=== PATIENT | female | born 1940 | race Caucasian/White ===

== ENCOUNTER → 2018-07-28 | Outpatient (REF) ==
[~2018-07-28] MED LIST: ALEVE 220MG220 MG PO; COMPLETE SENIOR1 TA1 PO; MOBIC 7.5MG7.5 MG PO; PRAVACHOL 20MG20 MG PO; PREVACID 30MG30 M1 PO; PROBIOTIC-MAJOR PO; TIROSINT50 MC1 PO; TOPROL XL100 MG PO; TYLENOL 500MG500 MG PO
[2018-07-28 16:32] LABS: AMYLASE 86 U/L (30-110); LIPASE 87 U/L (23-300)
== END ==
LOC: ZLAB.WCH 16:13
PROVIDERS: Nurse Practitioner Family
DX: Z01.89 Encounter for other specified special examinations (principal)

== ENCOUNTER → 2021-10-13 | Outpatient (CLI) | payer MEDICARE | LOC: COL.RAD 09:29 | DX: N28.1 Cyst of kidney, acquired (principal) ==

== ENCOUNTER → 2022-07-07 | Outpatient (CLI) | payer MEDICARE | LOC: COL.RAD 14:06 | DX: N28.1 Cyst of kidney, acquired (principal); M54.50 Low back pain, unspecified; R10.11 Right upper quadrant pain ==

== ENCOUNTER 2023-01-12 15:20 | Observation (INO) | payer MEDICARE ==
[2023-01-12 16:40] LABS: HEMOGLOBIN 11.6 g/dl (12.5-16.0); MEAN CELL VOLUME 96 fl (80.0-100.0); MEAN CORPUSCULAR HEMOGLOBIN 32 pg (27-31); MEAN CORPUSCULAR HGB CONC 34 g/dl (33.0-37.0); MEAN PLATELET VOLUME 9.4 fl (7.4-10.4); PLATELET COUNT 199 K/mm3 (130-400); RED BLOOD COUNT 3.62 M/mm3 (4.10-5.30)
[2023-01-12 16:41] LABS: HEMATOCRIT 34.6 % (37.0-47.0)
--- NOTE | 2023-01-12 16:45 | NUR ---
Pt to medical floor, room 314. Pt oriented to room and call light system. A&Ox4. Hard of hearing; hearing aids on DOREEN. Telemetry on with NSR. LCTA on RA. BSx4. Pedal pulses +1,DOREEN. Ecchymosis noted on BUE. Pt states she has some dypsnea on exertion, other than that she "does not feel anything when laying down." Call light within reach.
[2023-01-12] MEDS ORDERED: PREDNISONE10 MG PO (16:49)
[2023-01-12] MEDS ORDERED: FOSAMAX 35MG35 MG PO (16:50)
[2023-01-12] MEDS ORDERED: ETHAMBUTOL HYD400 MG PO (16:52)
[2023-01-12 16:55] VITALS: BP 148/66; PULSE 73; TEMP 98.4
[2023-01-12] MEDS ORDERED: METHOTREXA2.5 MG/TAB PO (16:57)
[2023-01-12 16:58] LABS: PARTIAL THROMBOPLASTIN TIME 24.4 SECONDS (26.0-37.0)
[2023-01-12] MEDS ORDERED: NORCO 325 MG-51 TAB PO (16:58)
[2023-01-12] MEDS ORDERED: VITAMIN D 50,1.25 MG PO (16:59)
[2023-01-12] MEDS ORDERED: LOPRESSOR100 MG PO (17:00)
[2023-01-12 17:01] LABS: BILIRUBIN,TOTAL 0.4 mg/dL (0.2-1.2); CALCIUM 9.4 mg/dL (8.4-10.2); CREATININE, serum 1.17 mg/dL (0.57-1.11); MAGNESIUM 2.1 mg/dL (1.6-2.6); POTASSIUM 4.1 mmol/L (3.5-4.5); TOTAL PROTEIN 7.1 gm/dL (6.2-8.1)
[2023-01-12] MEDS ORDERED: FOLIC ACID 11 MG/TA1 PO (17:01)
[2023-01-12 17:04] LABS: BAND 5 % (0-10); LYMPHOCYTE 20 % (20.0-51.0); METAMYELOCYTE 2 % (0-0); NEUTROPHILS 63 % (42.0-75.2)
[2023-01-12 17:05] LABS: ANISOCYTOSIS 1+
[2023-01-12 17:06] LABS: PLATELET ESTIMATE NORMAL (NORMAL)
[2023-01-12 19:57] VITALS: BP 148/66; PULSE 73
[2023-01-12 23:48] VITALS: BP 119/55; PULSE 62; TEMP 97.7
--- NOTE | 2023-01-13 02:15 | NUR ---
HepXa 1.24, stopped for 2 hours @ 0215 per protocol, PTT and HepXa ordered for 0415
[2023-01-13 03:22] VITALS: BP 149/66; PULSE 57; TEMP 98.1
[2023-01-13 05:03] LABS: PARTIAL THROMBOPLASTIN TIME 44.4 SECONDS (26.0-37.0)
--- NOTE | 2023-01-13 05:15 | NUR ---
HepXa drawn after heparin off x2hrs is 0.5, rate decreased to 6.5 cc/hr per protocol, recheck @ 8652
[2023-01-13] MEDS ORDERED: PROTONIX 40MG T40 MG PO (07:23)
[2023-01-13] MEDS ORDERED: ELIQUIS 5MG PO (07:24)
[2023-01-13 08:17] VITALS: BP 140/55; PULSE 67; TEMP 98.1
[2023-01-13 11:28] VITALS: BP 130/64; PULSE 66; TEMP 98.1
== END 2023-01-13 12:51 | disposition home or self-care (01) ==
LOC: COL.ER 15:20 → EDSTATUS 15:42 → MEDICAL 15:44
PROVIDERS: Hospitalist; ADMIT Internal Medicine
DX: I26.99 Other pulmonary embolism without acute cor pulmonale (principal); I82.402 Acute embolism and thrombosis of unspecified deep veins of left lower extremity; A31.2 Disseminated mycobacterium avium-intracellulare complex (DMAC); B37.81 Candidal esophagitis; M06.9 Rheumatoid arthritis, unspecified; E78.5 Hyperlipidemia, unspecified; E03.9 Hypothyroidism, unspecified; K21.9 Gastro-esophageal reflux disease without esophagitis; M19.90 Unspecified osteoarthritis, unspecified site; I07.1 Rheumatic tricuspid insufficiency; Z79.899 Other long term (current) drug therapy; Z79.890 Hormone replacement therapy; Z79.52 Long term (current) use of systemic steroids
CPT/HCPCS: G0378; J1644; J7512

== ENCOUNTER 2023-07-27 11:44 | Observation (INO) | payer MEDICARE ==
[2023-07-27] VITALS (13 sets, daily range): BP systolic 88–127; BP diastolic 30–77; PULSE 57–90; TEMP 98.1–98.4
[~2023-07-27] VITALS: Ht 162.6 cm; Wt 57.7 kg
[~2023-07-27 11:44] MED LIST changes: +ELIQUIS 5MG PO; +ETHAMBUTOL HYD400 MG PO; +FOLIC ACID 11 MG/TA1 PO; +FOSAMAX 35MG35 MG PO; +LOPRESSOR100 MG PO; +METHOTREXA2.5 MG/TAB PO; +NORCO 325 MG-51 TAB PO; +PREDNISONE10 MG PO; +PROTONIX 40MG T40 MG PO; +SYNTHROID0.05 MG/TA PO; -TIROSINT50 MC1 PO; -TOPROL XL100 MG PO; +VITAMIN D 50,1.25 MG PO
[2023-07-27 12:15] LABS: BASO % 0.2 % (0.0-2.0); GRAN # 7.8 K/mm3 (1.4-6.5); GRAN % 80.9 % (42.2-75.2); HEMOGLOBIN 11.1 g/dl (12.5-16.0); LYMPH # 1.3 K/mm3 (1.2-3.4); LYMPH % 13.3 % (20.0-51.0); MEAN CELL VOLUME 98 fl (80.0-100.0); MEAN CORPUSCULAR HEMOGLOBIN 31 pg (27-31); MEAN CORPUSCULAR HGB CONC 31 g/dl (33.0-37.0); MEAN PLATELET VOLUME 9.6 fl (7.4-10.4); MONO # 0.5 K/mm3 (0.1-0.6); MONO % 4.8 % (1.7-9.3); PLATELET COUNT 297 K/mm3 (130-400); RED BLOOD COUNT 3.63 M/mm3 (4.10-5.30); REDCELL DISTRIBUTION WIDTH-CV 18.5 % (11.5-14.5)
[2023-07-27 12:16] LABS: HEMATOCRIT 35.7 % (37.0-47.0)
[2023-07-27 12:21] LABS: PROTHROMBIN TIME 11.1 SECONDS (9.7-12.8)
[2023-07-27 12:24] LABS: PARTIAL THROMBOPLASTIN TIME 25.1 SECONDS (26.0-37.0)
[2023-07-27 12:39] LABS: ALBUMIN 4.3 gm/dL (3.4-4.8); BILIRUBIN,TOTAL 0.5 mg/dL (0.2-1.2); CALCIUM 9.5 mg/dL (8.4-10.2); CREATININE, serum 1.05 mg/dL (0.57-1.11); TOTAL PROTEIN 7.1 gm/dL (6.2-8.1)
[2023-07-27 12:59] LABS: TROPONIN-I 0.017 ng/mL (0.00-0.033); TSH w REFLEX 2.965 uIU/mL (0.350-4.940)
[2023-07-27] MEDS ORDERED: FLONASE NASAL S16 GM NS (12:59)
[2023-07-27] MEDS ORDERED: ELIQUIS 2.5 PO (16:21)
[2023-07-27] MEDS ORDERED: CORDARONE200 MG/TAB PO (16:24)
--- NOTE | 2023-07-27 19:25 | NUR ---
Clarified with SHERIN Harris. Since therapy has not seen patient, ok for patient to stay tonight. Notified that home medications were not ordered yet, awaiting further orders.
--- NOTE | 2023-07-27 21:50 | NUR ---
Patient assessed around 2014. Alert and oriented, and able to make needs known. Denies having pain and discomfort. Peripheral INT to right wrist. Right AC taken out due to leaking. Remains in normal sinus rhythm on telemetry. Voices no questions, needs, or concerns at this time. In bed with call light within reach.
[2023-07-28 00:08] VITALS: BP_SYST 107
[2023-07-28 02:53] VITALS: BP 125/54; PULSE 56; TEMP 98
[2023-07-28 03:19] VITALS: BP_SYST 125
--- NOTE | 2023-07-28 05:58 | NUR ---
Patient has denied pain and discomfort this shift. Voices no questions, needs, or concerns at this time. In bed with call light within reach. Remains in normal sinus on telemetry.
[2023-07-28 07:33] VITALS: BP 153/72; PULSE 75; TEMP 98.4
[2023-07-28 09:00] VITALS: BP_SYST 153
--- NOTE | 2023-07-28 09:21 | NUR ---
Accounting Office Manager met with Patient at bedside to conduct Care Managment ASsessment and discuss discharge planning. Patient lives in [place], [place] with her significant other of 30 years and his son. Patient states that her daughter is her HCDPOA. Patient is established with Dr. Rob in [place] for PCP and covered by [facility] [employer] for insurance. PAtient requests discharge medications be sent to [facility] in [place], [place]. Patient denies the use of DME and endorses independent ADL/IADLs prior to admission. Physician assesses Patient to be ready for discharge. PAtient will discharge home today.
--- NOTE | 2023-07-28 10:15 | NUR ---
WENT OVER DISCHARGE WITH THE PATIENT. SHE UDERSTOOD HER DISCHARGE INSTRUCTIONS. NURSING WALKED PATIENT TO EXIT.
== END 2023-07-28 10:15 | disposition home or self-care (01) ==
LOC: COL.ER 11:44 → MEDICAL 13:22
PROVIDERS: Family Medicine; ADMIT Internal Medicine
DX: I48.91 Unspecified atrial fibrillation (principal); D64.9 Anemia, unspecified; M19.90 Unspecified osteoarthritis, unspecified site; R00.0 Tachycardia, unspecified; E89.0 Postprocedural hypothyroidism; H91.90 Unspecified hearing loss, unspecified ear; M81.0 Age-related osteoporosis without current pathological fracture; K21.9 Gastro-esophageal reflux disease without esophagitis; F17.210 Nicotine dependence, cigarettes, uncomplicated; Z86.711 Personal history of pulmonary embolism; Z79.899 Other long term (current) drug therapy; Z79.891 Long term (current) use of opiate analgesic; Z79.890 Hormone replacement therapy
CPT/HCPCS: G0378; J1644; J2704; J7512

== ENCOUNTER 2024-02-11 13:40 | Emergency (ER) | payer MEDICARE ==
[~2024-02-11] VITALS: Ht 170.2 cm; Wt 49.1 kg
[~2024-02-11 13:40] MED LIST changes: +ALDACTONE 25MG25 M1 PO; +AZULFIDINE ENT500 MG PO; +CIPRO 250MG TA250 MG PO; +CORDARONE200 MG/TAB PO; +COUMADIN 2MG2 MG/TAB PO; +ELIQUIS 2.5 PO; +EUTHYROX50 MCG PO; +FERROUSAL325 MG PO; +FLONASE NASAL S16 GM NS; +LASIX 20MG TABL20 MG PO; +LIDOCAINE HCL100 M1 MM; +PACERONE200 MG PO; +PACERONE400 MG PO; +PREDNISONE20 MG PO
[2024-02-11 13:45] VITALS: TEMP 97.6
[2024-02-11 14:43] LABS: ARTERIAL BLD GAS O2 SATURATION 95.2 % (92-100); ARTERIAL BLD GAS TCO2 CT 24.2; ARTERIAL BLOOD GAS BASE EXCESS 3.2 (-2-2); ARTERIAL BLOOD GAS HCO3 23.5 meq/L (22-26); ARTERIAL BLOOD GAS PO2 66.7 mmHg (80-100)
[2024-02-11 14:44] LABS: ARTERIAL BLOOD GAS PCO2 23.1 mmHg (35-45); ARTERIAL BLOOD GAS pH 7.63 (7.35-7.45)
[2024-02-11 15:16] LABS: BASO # 0.1 K/mm3 (0.0-0.2); BASO % 1.1 % (0.0-2.0); EOS # 0.2 K/mm3 (0.0-0.7); EOS % 2.1 % (0.0-4.0); GRAN # 5.8 K/mm3 (1.4-6.5); GRAN % 66.4 % (42.2-75.2); HEMOGLOBIN 10.1 g/dl (12.5-16.0); LYMPH # 1.4 K/mm3 (1.2-3.4); LYMPH % 15.4 % (20.0-51.0); MEAN CELL VOLUME 87 fl (80.0-100.0); MEAN CORPUSCULAR HEMOGLOBIN 27 pg (27-31); MEAN CORPUSCULAR HGB CONC 31 g/dl (33.0-37.0); MONO # 1.2 K/mm3 (0.1-0.6); MONO % 13.6 % (1.7-9.3); PLATELET COUNT 241 K/mm3 (130-400); RED BLOOD COUNT 3.74 M/mm3 (4.10-5.30); REDCELL DISTRIBUTION WIDTH-CV 17.8 % (11.5-14.5)
[2024-02-11 15:27] LABS: HEMATOCRIT 32.4 % (37.0-47.0)
[2024-02-11 15:30] LABS: INR 1.6 (0.8-3.0); PROTHROMBIN TIME 17.5 SECONDS (9.7-12.8)
[2024-02-11 15:39] LABS: COLLECTION METHOD CATHETER
[2024-02-11 15:40] LABS: ALBUMIN 3.4 gm/dL (3.4-4.8); BILIRUBIN,TOTAL 0.3 mg/dL (0.2-1.2); CALCIUM 9.7 mg/dL (8.4-10.2); CREATININE, serum 2.05 mg/dL (0.57-1.11); POTASSIUM 3.5 mmol/L (3.5-4.5); TOTAL PROTEIN 7.4 gm/dL (6.2-8.1)
[2024-02-11 15:46] LABS: TROPONIN-I 0.017 ng/mL (0.00-0.033)
[2024-02-11 15:58] LABS: PH 5.5 (5.0-8.5); URINE APPEARANCE CLOUDY (CLEAR/HAZY); URINE BLOOD TRACE (NEGATIVE); URINE COLOR YELLOW (YELLOW); URINE GLUCOSE NEGATIVE (NEGATIVE); URINE KETONE NEGATIVE (NEGATIVE); URINE NITRATE NEGATIVE (NEGATIVE); URINE PROTEIN(semi-quant) NEGATIVE (NEGATIVE); URINE UROBILINOGEN 0.2 E.U/dL (0.2-1.0)
[2024-02-11] MEDS ORDERED: CEPHALEXIN500 M1 PO (16:23)
[2024-02-11] MEDS ORDERED: cefTRIAXone 1 G in Water For Injection,Sterile 10 ML IV ONE (16:30)
[2024-02-11 16:46] VITALS: BP 130/78; PULSE 71
== END 2024-02-11 16:46 | disposition home or self-care (01) ==
LOC: COL.ER 13:40
PROVIDERS: Nurse Practitioner
DX: N39.0 Urinary tract infection, site not specified (principal); R06.02 Shortness of breath; Z79.899 Other long term (current) drug therapy; Z99.81 Dependence on supplemental oxygen
CPT/HCPCS: J0696

== ENCOUNTER 2024-02-15 15:44 | Inpatient (IN) | payer MEDICARE ==
[~2024-02-15] VITALS: Ht 165.1 cm; Wt 47.5 kg
[~2024-02-15 15:44] MED LIST changes: +CEPHALEXIN500 M1 PO
[2024-02-15] MEDS ORDERED: Albuterol 0.083% Neb Soln 2.5 MG/3 ML UD IH ONE (16:30)
[2024-02-15] MEDS ORDERED: methylPREDNISolone Sod Succ 125 MG/2 ML VIAL IV ONE (16:30)
[2024-02-15] MEDS ORDERED: Ipratropium 0.02% Neb Soln 0.5 MG/2.5 ML UD IH ONE (16:30)
[2024-02-15] MEDS ORDERED: NS 500 ML IV ONE (16:30)
[2024-02-15 16:32] LABS: BASO # 0.1 K/mm3 (0.0-0.2); BASO % 0.9 % (0.0-2.0); EOS % 0.2 % (0.0-4.0); GRAN # 7.2 K/mm3 (1.4-6.5); GRAN % 70.7 % (42.2-75.2); LYMPH # 1.4 K/mm3 (1.2-3.4); MEAN CELL VOLUME 86 fl (80.0-100.0); MEAN CORPUSCULAR HGB CONC 30 g/dl (33.0-37.0); MONO # 1.4 K/mm3 (0.1-0.6); MONO % 13.3 % (1.7-9.3); PLATELET COUNT 207 K/mm3 (130-400); RED BLOOD COUNT 3.61 M/mm3 (4.10-5.30); REDCELL DISTRIBUTION WIDTH-CV 17.8 % (11.5-14.5)
[2024-02-15 16:39] LABS: HEMATOCRIT 30.9 % (37.0-47.0); HEMOGLOBIN 9.4 g/dl (12.5-16.0); MEAN CORPUSCULAR HEMOGLOBIN 26 pg (27-31)
[2024-02-15 16:46] LABS: INR 1.3 (0.8-3.0); PROTHROMBIN TIME 14.2 SECONDS (9.7-12.8)
[2024-02-15 16:49] LABS: PARTIAL THROMBOPLASTIN TIME 26.7 SECONDS (26.0-37.0)
[2024-02-15 16:55] LABS: ALANINE AMINOTRANSFERASE 13 U/L (0-55); ALBUMIN 3.1 gm/dL (3.4-4.8); ALKALINE PHOSPHATASE 64 U/L (40-150); ANION GAP 17 mmol/L (7-16); AST,SGOT 20 U/L (5-34); BILIRUBIN,TOTAL 0.6 mg/dL (0.2-1.2); BLOOD UREA NITROGEN 22 mg/dL (10-20); CALCIUM 9.8 mg/dL (8.4-10.2); CHLORIDE 97 mmol/L (98-107); CREATININE, serum 1.45 mg/dL (0.57-1.11); GLUCOSE 77 mg/dL (70-99); POTASSIUM 3.7 mmol/L (3.5-4.5); SODIUM 133 mmol/L (136-145); TOTAL PROTEIN 6.6 gm/dL (6.2-8.1)
[2024-02-15 16:57] LABS: ALCOHOL(ethanol),MEDICAL < 10 mg/dL (0-10)
[2024-02-15 17:09] LABS: TROPONIN-I 0.041 ng/mL (0.00-0.033)
[2024-02-15 18:11] LABS: COLLECTION METHOD CATHETER
[2024-02-15 18:20] LABS: PH 5.5 (5.0-8.5); URINE APPEARANCE CLEAR (CLEAR/HAZY); URINE BLOOD TRACE (NEGATIVE); URINE COLOR Dark Yellow (YELLOW); URINE GLUCOSE NEGATIVE (NEGATIVE); URINE KETONE TRACE (NEGATIVE); URINE NITRATE NEGATIVE (NEGATIVE); URINE PROTEIN(semi-quant) 1+ (NEGATIVE); URINE UROBILINOGEN 0.2 E.U/dL (0.2-1.0)
[2024-02-15] MEDS ORDERED: LORazepam 2 MG/ML 1 ML VIAL IV ONE (18:30)
[2024-02-15 20:43] LABS: TRICYCLIC ANTIDEPRESS URINE NEGATIVE (NEGATIVE)
[2024-02-15 21:44] VITALS: BP 129/56; PULSE 87; TEMP 97.6
[2024-02-15] MEDS ORDERED: Acetaminophen 500 MG TAB PO PRN (21:45)
[2024-02-15] MEDS ORDERED: Polyethylene Glycol 3350 17 GM PDS PO PRN (21:45)
[2024-02-15] MEDS ORDERED: Ondansetron 4 MG/2 ML VIAL IV PRN (21:45)
[2024-02-15] MEDS ORDERED: NS Flush 25 ML IV Bag IV PRN (22:00)
[2024-02-15 22:56] VITALS: BP 117/61; PULSE 67; TEMP 97.4
[2024-02-16] VITALS (12 sets, daily range): BP systolic 99–122; BP diastolic 48–67; PULSE 61–77; TEMP 97.6–98.1
[2024-02-16] MEDS ORDERED: NS 500 ML IV ONE (04:30)
--- NOTE | 2024-02-16 05:05 | NUR ---
PT ARRIVED TO THE MEDICAL FLOOR AROUND 2135HRS TO ROOM 312. PT A&O X 2; VSS; O2 2L VIA NC. PT DENIED PAIN OR DISCOMFORT. PT UNABLE TO ANSWER MANY QUESTIONS DUE TO HER AMS. ADMISSION ASSESSMENT COMPLETE. UNABLE TO COMPLETE MED REC DUE TO PT'S AMS. WILL CONTINUE TO CHECK ON PT OFTEN. FALL PRECAUTIONS IN PLACE. BED ALARM ON. CALL LIGHT WITHIN REACH.
[2024-02-16 06:35] LABS: BASO % 0.2 % (0.0-2.0); GRAN # 4.4 K/mm3 (1.4-6.5); GRAN % 86.7 % (42.2-75.2); LYMPH # 0.5 K/mm3 (1.2-3.4); LYMPH % 10.1 % (20.0-51.0); MEAN CELL VOLUME 84 fl (80.0-100.0); MEAN CORPUSCULAR HGB CONC 32 g/dl (33.0-37.0); MEAN PLATELET VOLUME 9.9 fl (7.4-10.4); MONO # 0.1 K/mm3 (0.1-0.6); PLATELET COUNT 193 K/mm3 (130-400); RED BLOOD COUNT 3.17 M/mm3 (4.10-5.30); REDCELL DISTRIBUTION WIDTH-CV 17.6 % (11.5-14.5)
[2024-02-16 06:37] LABS: HEMATOCRIT 26.5 % (37.0-47.0); HEMOGLOBIN 8.4 g/dl (12.5-16.0); MEAN CORPUSCULAR HEMOGLOBIN 26 pg (27-31)
[2024-02-16 06:49] LABS: CALCIUM 9.2 mg/dL (8.4-10.2); CREATININE, serum 1.55 mg/dL (0.57-1.11); POTASSIUM 3.5 mmol/L (3.5-4.5)
--- NOTE | 2024-02-16 08:00 | NUR ---
Patient is resting in bed, at bedside, alert and partially oriented, telemetry in place NSR. Assessment completed, No further needs at this time. Student nurse at bedside. Call light within reach.
[2024-02-16] MEDS ORDERED: Tiotropium 18 MCG **** subs to Tiotropium 5 mcg IH SCH (10:51)
[2024-02-16] MEDS ORDERED: Tiotropium 2.5 MCG Respimat MDI IH SCH (10:54)
[2024-02-16] MEDS ORDERED: LR 1,000 ML IV SCH (11:00)
[2024-02-16] MEDS ORDERED: CEPHALEXIN500 M1 PO (11:12)
--- NOTE | 2024-02-16 13:50 | NUR ---
Pt is distended in lower quadrants. Pt said "I don't feel the need to void", has voided a sm amt after attempting.
[2024-02-16] MEDS ORDERED: Levalbuterol Neb Soln 1.25 MG/3 ML UD IH SCH (14:00)
--- NOTE | 2024-02-16 15:07 | NUR ---
Social work student Sofiya faxed Home Health updates to [facility]. Discharge plan: Home with HH
--- NOTE | 2024-02-16 15:46 | NUR ---
Printing Roller Handler met with patient to discuss discharge planning. Patient is tearful and when SW sat down to talk with patient, she stated "they are sending me to the rest home". Patient advised this was told to her by the special officer. Patient was recently hospitalized at this facility 01/17/24-01/19/24 and discharged home with home oxygen from [facility] and Home Health services from [facility]. Patient lives in [place] and sees Dr. Rob for primary care. Patient confirmed she is still getting services from [facility] and wants to continue with them. Patient lives with her life partner, Niko (ph#[phone]). Patient advised her DPOA-HC is her daughter, Thelma (ph#[phone]). Patient would like to return home with continued HH services once ready for discharge and does not want to go to a rest home. SW contacted both Niko and Thelma to provide update and review discharge plan. Discharge Plan: Home with [facility]
--- NOTE | 2024-02-16 16:11 | NUR ---
Pt voided twice, 75 mL & 100 mL. Dark yellow, clear. Still isn't feeling the need to void but is reminding herself to attempt to void.
--- NOTE | 2024-02-16 19:00 | NUR ---
Patient is resting in bed, continues getting fluids per orders, all needs met, report will be given to night RN.
--- NOTE | 2024-02-16 19:25 | NUR ---
PATIENT SITTING UP IN BED WITH TV ON WITH NO FAMILY PRESENT WITH NO ACUTE DISTRESS NOTED. PATIENT ON ROOM AIR. LR INFUSING INTO LEFT AC WITH NO COMPLICATION NOTED. PATIENT REQUESTED WATER. ICE AND WATER GIVEN. PATIENT DENEIS ANY OTHER NEEDS. PATIENT CARE ASSUMED FROM ILEANA. BED IN LOW POSITION WITH WHEELS LOCKED WITH RAILS UP X2 AND CALL LIGHT WITHIN REACH. BED ALARM ON.
--- NOTE | 2024-02-16 20:20 | NUR ---
PATIENT RESTING IN BED WITH TV ON WITH NO ACUTE DISTRESS NOTED WITH NO FAMILY PRESENT. PATIETN ON ROOM AIR. LR INFUSING INTO LEFT AC WITH NO COMPLICATIONS NOTED. TELEMETRY INTACT. ASSESSMENT COMPLETED AT THIS TIME. PATIENT TOELRATED WELL. PATIENT HELPED TO TURN TO RIGHT SIDE WITH PILLOW SUPPORT IN PLACE. PATIENT DENIES ANY OTHER NEEDS. BED IN LOW POSITION WITH WHEELS LOCKED WITH RAILS UP X3 AND CALL LIGHT WITHIN REACH.
--- NOTE | 2024-02-16 21:24 | NUR ---
PATIENT RESTING ON BACK WITH TV OFF WITH NO ACUTE DISTRESS NOTED. PATIENT ON ROOM AIR. PATIENT EASILY AROUSED. MEDICATION ADMINISTRATION COMPLETED AT THIS TIME. PATIENT TOLERATED WELL. PATIENT REQUESTED ICE AND WATER. BOTH GIVEN. ALL NEEDS MET. BED IN LOW POSITION WITH WHEELS LOCKED WITH RAILS UP X3 AND CALL LIGHT WITHIN REACH.
[2024-02-17] VITALS (9 sets, daily range): BP systolic 92–129; BP diastolic 47–69; PULSE 65–76; TEMP 97.4–98
[2024-02-17 06:52] LABS: MEAN CELL VOLUME 85 fl (80.0-100.0); MEAN CORPUSCULAR HGB CONC 31 g/dl (33.0-37.0); MEAN PLATELET VOLUME 9.9 fl (7.4-10.4); PLATELET COUNT 194 K/mm3 (130-400); RED BLOOD COUNT 3.11 M/mm3 (4.10-5.30); REDCELL DISTRIBUTION WIDTH-CV 17.8 % (11.5-14.5)
[2024-02-17 06:53] LABS: HEMATOCRIT 26.4 % (37.0-47.0); HEMOGLOBIN 8.2 g/dl (12.5-16.0); MEAN CORPUSCULAR HEMOGLOBIN 26 pg (27-31)
[2024-02-17 07:09] LABS: CALCIUM 8.1 mg/dL (8.4-10.2); CREATININE, serum 1.47 mg/dL (0.57-1.11); POTASSIUM 3.7 mmol/L (3.5-4.5)
--- NOTE | 2024-02-17 08:20 | NUR ---
Patient was sitting in bed comfortably when this student nurse entered room. This student nurse performed assessment and obtained vitals on patient. Patient expressing concerns of pain 5/10 and the need for her home medications, specifically her home pain medications. Primary nurse notified of patient concerns. No other concerns from patient at this time.
[2024-02-17 08:28] LABS: ANISOCYTOSIS 1+; BAND 9 % (0-10); LYMPHOCYTE 2 % (20.0-51.0); NEUTROPHILS 87 % (42.0-75.2); PLATELET ESTIMATE NORMAL (NORMAL)
[2024-02-17 08:29] LABS: HYPOCHROMIA 2+
[2024-02-17] MEDS ORDERED: NS 1,000 ML IV SCH (08:45)
[2024-02-17] MEDS ORDERED: sulfaSALAzine 500 MG TAB PO SCH (09:00)
--- NOTE | 2024-02-17 09:21 | NUR ---
Called Dr. Rob's office to request most recent medication list- awaiting for list to be faxed.
[2024-02-17] MEDS ORDERED: Amiodarone 200 MG TAB PO SCH (09:58)
[2024-02-17 10:21] LABS: INR 1.1 (0.8-3.0); PROTHROMBIN TIME 12.3 SECONDS (9.7-12.8)
--- NOTE | 2024-02-17 10:35 | NUR ---
Initial visit; Patient smiled and stated she was happy to see Marine Fuel Dock Attendant and also mentioned that she feels better. Marine Fuel Dock Attendant was glad to hear Carolina say she is feeling good today and prays that each day gets better. Marine Fuel Dock Attendant asked if she had any needs and she stated she didn't. Marine Fuel Dock Attendant offered God's blessings.
--- NOTE | 2024-02-17 10:35 | NUR ---
Assessment completed. Pt sitting up in chair. Tylenol administered for c/o pain 5/10. Pt reports acceptable pain level 5/10 but requests Tylenol "to stay ahead of it." Patient normally takes hydrocodone for pain control but that was held due to patient AMS upon admission. Dr. Ramirez's office faxed updated med list- will update med rec. On RA. Dyspnea noted with minimal exertion. Assisted patient with bathing and oral cares- tolerated fair. INR resulted. Student nurse to administer Coumadin dose for this am.
[2024-02-17] MEDS ORDERED: TYLENOL 500MG500 MG PO (11:23)
[2024-02-17] MEDS ORDERED: PROAIR DIGIHAL90 MCG IH (11:27)
[2024-02-17] MEDS ORDERED: IPRATROPIUM BROM3 M1 IH (11:28)
[2024-02-17] MEDS ORDERED: LASIX 80MG TABL80 MG PO (11:32)
[2024-02-17] MEDS ORDERED: LIDOCAINE HCL100 M1 MM (11:42)
--- NOTE | 2024-02-17 12:19 | NUR ---
Patient reports no bowel movement x1 week which is "normal" for her. Miralax administered for constipation. Reports relief from Tyleonl.
--- NOTE | 2024-02-17 14:01 | NUR ---
Crab Picker contacted [facility] and they did not receive yesterday's updates. NAVA StudentAlice resent them. NAVA met with patient to check and and review discharge plan. Patient still wants to return home with [facility]. Discharge Plan: Home with HH
--- NOTE | 2024-02-17 16:15 | NUR ---
Pt currently a DNR. Dx Pulmonary Fibrosis. During rounding this AM Dr. Rucker reviewed pt's status. Pt stated, "I have been planning all along for this. I can make my way. I wear my O2 when I need it." I returned later this afternoon and spoke with Carolina. Carolina voiced concerns of signing up for SAMUEL especially concerning her significant other- Niko- and his living situation if she filed for SAMUEL. I encouraged her to call [facility] and gave her the phone number to review her personal situation with them. She also spoke of having "a therapy dog- her dog- who watches over her at home". "Wherever I go he needs to be able to see me." I also spoke with Carolina that I was concerned she had very little lung function and needed to make the most of wearing her O2 consistently at home. We talked about any changes in the home so she is able to stay as long as possible and be functional. Rashida VICK has been assisting pt with discharge planning. Pt found it difficult to accept that she may need care at SNF etc but stated this stemmed from concern for Niko.
--- NOTE | 2024-02-17 18:26 | NUR ---
Pt currently sitting up in bed eating supper. Reports pain to back 5/10 and requests Tylenol at bedtime. NS infusing as ordered to LAC without s/s complications. Still on RA with SpO2 97% at rest. Wears oxygen continuously at home.
--- NOTE | 2024-02-17 18:30 | NUR ---
PATIENT SITTING UP IN BED EATING A SALAD WITH TV ON WITH NO FAMILY PRESENT WITH NO ACUTE DISTRESS NOTED. PATIENT ON ROOM AIR. NS INFUSING INTO LEFT AC WITH NO COMPLICATIONS NOTED. TELEMETRY INTACT. PATIENT DENIES ANY NEEDS AT THIS TIME. PATIENT CARE ASSUMED FROM VALERIA AT THIS TIME. BED IN LOW POSITION WITH WHEELS LOCKED WITH RIALS UP X2 AND CALL LIGHT WITHIN REACH. BED ALARM ON.
--- NOTE | 2024-02-17 20:28 | NUR ---
DR. SOLO IN TO SEE PATIENT AT THIS TIME.
--- NOTE | 2024-02-17 20:33 | NUR ---
PATIENT RESTING IN BED WATCHING TV WITH NO FAMILY PRESENT WITH NO ACUTE DISTRESS NOTED. PATIENT ON ROOM AIR. NS INFUSING INTO LEFT AC WITH NO COMPLICATIONS NOTED. ASSESSMENT AND MEDICATION ADMINISTRATION COMPLETED AT THIS TIME. PATIENT TOLERATED WELL. PATIENT DENIES ANY NEEDS AT THIS TIME. BED IN LOW POSITION WITH WHEELS LOCKED WITH RAILS UP X3 AND CALL LIGHT WITHIN REACH. BED ALARM ON.
[2024-02-17] MEDS ORDERED: dexAMETHasone 4 MG/ML VIAL IV SCH (21:00)
[2024-02-18] VITALS (8 sets, daily range): BP systolic 102–130; BP diastolic 55–66; PULSE 60–75; TEMP 97.8–98.1
[2024-02-18 06:45] LABS: MEAN CELL VOLUME 85 fl (80.0-100.0); MEAN CORPUSCULAR HGB CONC 31 g/dl (33.0-37.0); PLATELET COUNT 195 K/mm3 (130-400); RED BLOOD COUNT 2.86 M/mm3 (4.10-5.30); REDCELL DISTRIBUTION WIDTH-CV 17.7 % (11.5-14.5)
[2024-02-18 06:47] LABS: HEMATOCRIT 24.4 % (37.0-47.0); HEMOGLOBIN 7.5 g/dl (12.5-16.0); MEAN CORPUSCULAR HEMOGLOBIN 26 pg (27-31)
[2024-02-18 06:59] LABS: CALCIUM 7.7 mg/dL (8.4-10.2); CREATININE, serum 1.14 mg/dL (0.57-1.11)
[2024-02-18 07:15] LABS: INR 1.3 (0.8-3.0); PROTHROMBIN TIME 14.2 SECONDS (9.7-12.8)
[2024-02-18 07:20] LABS: LYMPHOCYTE 2 % (20.0-51.0); NEUTROPHILS 95 % (42.0-75.2)
[2024-02-18 07:21] LABS: ANISOCYTOSIS 1+; HYPOCHROMIA 3+; OVALOCYTES 1+; PLATELET ESTIMATE NORMAL (NORMAL); SCHISTOCYTES 1+; TEAR DROP CELLS 1+
--- NOTE | 2024-02-18 07:55 | NUR ---
Pt awake in bed, A&O x4. Shift assessment completed. VSS. O2 in place at 2L NC with no irritation to bilateral nares. Telemetry in place. Scattered bruising noted to STANE. Pt has no complaints at this time. Shower offered to pt and pt refused kindly. 100% of breakfast ate this morning. INT to Lt AC patent with no swelling, redness, or draiange. Call light within reach and fall precautions in place.
--- NOTE | 2024-02-18 11:35 | NUR ---
PATIENT IS EMOTIONAL IN ROOM AFTER HAVING DISCUSSION WITH SOCIAL WORK AND CASE MANAGEMENT. SPOUSE AT BEDSIDE. MORNING MEDICATIONS ADMINISTERED BY UGO, GIFT SHOP CLERK. PATIENT DENIES ANY PAIN AT THIS TIME. UPDATED ON PLAN OF CARE. CURRENTLY ON BASELINE O2 OF 2L VIA NC. CALL LIGHT WITHIN REACH, BED ALARMS WITHIN PLACE, WILL CONTINUE TO MONITOR.
[2024-02-18 13:01] LABS: HEMATOCRIT 25.5 % (37.0-47.0); HEMOGLOBIN 7.8 g/dl (12.5-16.0)
[2024-02-18] MEDS ORDERED: RT SPIRIVA18 MCG IH (13:15)
[2024-02-18] MEDS ORDERED: LASIX 20MG TABL20 MG PO (13:18)
[2024-02-18] MEDS ORDERED: PACERONE100 MG PO (13:18)
[2024-02-18] MEDS ORDERED: AZULFIDINE500 MG/TAB PO (13:19)
--- NOTE | 2024-02-18 13:21 | NUR ---
During rounding Dr. Rucker, myself, significant other- Niko, Carolina and NAVA Field Y reviewed pt's status. The discussion of SAMUEL application was discussed. Per Niko- "I will be taking care of Carolina at home. I will take care of her until I can't take care of her. If we do Hospice I will do it at home until I can't and then we will take her to Hospice. We are not going to sign up for SAMUEL and have them take everything." Encouraged pt/Niko to contact [facility] to validate concerns about SAMUEL application. Pt stated, "This has been coming for I long time. I have told you this is how it would be. I know I'm weaker. Dr. Peralta did tell me he couldn't do anything more for me." Possible bleeding today for pt. HGB on admit 9.4, currently 7.8. Occult pending. Pt stated, "If I go to Hospice I'm giving up." Pt was crying off and on during discussion. She was shaking her head yes when it was discussed that she is very weak and finding it hard to do ADL's. When the topic of Hospice came up in the discussion she also shook her head yes/crying in agreement that her time is short and thoughts of how to manage are necessary. Rashida reviewed options of increased nursing checks through Home Health. Per Niko he would use them if he needed to. I stated to pt that she is currently Acutely/Chronically ill and this is now her new normal.
[2024-02-18] MEDS ORDERED: DECADRON 1MG TAB1 MG PO (13:28)
[2024-02-18] MEDS ORDERED: PROTONIX 40MG T40 MG PO (13:28)
--- NOTE | 2024-02-18 15:23 | NUR ---
IV AND TELEMETRY DISCONTINUED. DISCHARGE INSTRUCTIONS REVIEWED, ALL QUESTIONS ANSWERED. PATIENT ESCORTED OFF OF UNIT BY VIA QUIN STAFF.
--- NOTE | 2024-02-18 15:32 | NUR ---
Property Claims Adjuster met with patient and patient's partner, Niko to review discharge plan. RNDaja STAPLETON is also at bedside to discuss goals of care and the option of hospice. At this time, patient wants to return home with current HH services and does not want hospice. SW contacted [facility] and faxed discharge orders. SW also met with patient to review and present IM. Patient verbalized understanding and provided signature. SW placed form in chart and provided copy to patient. Discharge Plan: Home with [facility]
== END 2024-02-18 15:25 | disposition home health service (06) | DRG 196 ==
LOC: COL.ER 15:44 → MEDICAL 19:48
PROVIDERS: Internal Medicine; Nurse Practitioner Family; Physician Assistant; ADMIT Internal Medicine
DX: J84.10 Pulmonary fibrosis, unspecified (principal); J96.21 Acute and chronic respiratory failure with hypoxia; N17.9 Acute kidney failure, unspecified; R65.10 Systemic inflammatory response syndrome (SIRS) of non-infectious origin without acute organ dysfunction; I50.32 Chronic diastolic (congestive) heart failure; M06.9 Rheumatoid arthritis, unspecified; Z66 Do not resuscitate; K21.9 Gastro-esophageal reflux disease without esophagitis; Z20.822 Contact with and (suspected) exposure to COVID-19; E03.9 Hypothyroidism, unspecified; D64.9 Anemia, unspecified; M81.0 Age-related osteoporosis without current pathological fracture; I27.20 Pulmonary hypertension, unspecified; R54 Age-related physical debility; I08.1 Rheumatic disorders of both mitral and tricuspid valves; J44.9 Chronic obstructive pulmonary disease, unspecified; I48.0 Paroxysmal atrial fibrillation; I11.0 Hypertensive heart disease with heart failure; Z86.718 Personal history of other venous thrombosis and embolism; Z86.711 Personal history of pulmonary embolism; Z23 Encounter for immunization; Z99.81 Dependence on supplemental oxygen; Z79.01 Long term (current) use of anticoagulants; Z87.891 Personal history of nicotine dependence; Z79.890 Hormone replacement therapy; Z79.899 Other long term (current) drug therapy; Z88.8 Allergy status to other drugs, medicaments and biological substances; Z88.1 Allergy status to other antibiotic agents; Z91.030 Bee allergy status
CPT/HCPCS: A9270; J1100; J1650; J2060; J2930; J7030; J7040; J7120